=== PATIENT | female | born 1990 | race Asian ===

== ENCOUNTER 2017-08-14 14:40 | Outpatient (CLI) | payer OTHER ==
[~2017-08-14 14:40] MED LIST: BCP
[2017-08-14 15:28] LABS: BASOPHILS # (AUTO) 0.4 K/uL (0.00-0.22); EOSINOPHILS # (AUTO) 0.1 K/uL (0-0.4); HEMATOCRIT 41.6 % (36-48); HEMOGLOBIN 13.9 g/dL (12.0-16.0); LYMPHOCYTES # (AUTO) 1.9 K/uL (2.5-16.5); MEAN CORPUSCULAR HEMOGLOBIN 29 pg (27-31); MEAN CORPUSCULAR HGB CONC 33 g/dL (33-37); MEAN CORPUSCULAR VOLUME 87 fL (80-94); NEUTROPHILS # (AUTO) 8.8 K/uL (1.8-7.7); PLATELET COUNT (AUTO) 317 K/uL (140-450); WHITE BLOOD COUNT (AUTO) 12.2 K/uL (4.8-10.8)
[2017-08-17 17:12] LABS: HEPATITIS B SURFACE ANTIGEN NEGATIVE (NEGATIVE)
== END 2017-08-14 19:06 | disposition home or self-care (01) ==
LOC: MLB 14:40
PROVIDERS: ATTEND Obstetrics & Gynecology
DX: Z34.91 Encounter for supervision of normal pregnancy, unspecified, first trimester (principal); Z11.3 Encounter for screening for infections with a predominantly sexual mode of transmission
CPT/HCPCS: 36415; 84702; 85025; 86592; 86702; 86762; 86900; 86901; 87340

== ENCOUNTER → 2017-10-09 | Outpatient (CLI) | payer OTHER | LOC: MLB 15:08 | PROVIDERS: ATTEND Obstetrics & Gynecology | DX: Z33.1 Pregnant state, incidental (principal) | CPT/HCPCS: 36415; 86886 ==

== ENCOUNTER 2017-11-15 12:08 | Outpatient (CLI) | payer OTHER | END 2017-11-15 20:17 | disposition home or self-care (01) | LOC: MUS 12:08 | DX: Z34.92 Encounter for supervision of normal pregnancy, unspecified, second trimester (principal); Z3A.14 14 weeks gestation of pregnancy | CPT/HCPCS: 76805 ==

== ENCOUNTER 2017-12-03 08:45 | Outpatient (CLI) | payer OTHER ==
[2017-12-03 10:18] LABS: BASOPHILS # (AUTO) 0.2 K/uL (0.00-0.22); BASOPHILS % (AUTO) 2.1 % (0.0-2.0); EOSINOPHILS # (AUTO) 0.2 K/uL (0-0.4); EOSINOPHILS % (AUTO) 1.4 % (0.0-4.0); HEMATOCRIT 36.5 % (36-48); HEMOGLOBIN 12.3 g/dL (12.0-16.0); LYMPHOCYTES # (AUTO) 1.5 K/uL (2.5-16.5); MEAN CORPUSCULAR HEMOGLOBIN 30 pg (27-31); MEAN CORPUSCULAR HGB CONC 34 g/dL (33-37); MEAN CORPUSCULAR VOLUME 89.6 fL (80-94); MONOCYTES # (AUTO) 0.7 K/uL (0.8-1.0); MONOCYTES % (AUTO) 6.4 % (1.7-9.3); NEUTROPHILS # (AUTO) 9.1 K/uL (1.8-7.7); NEUTROPHILS % (AUTO) 77.1 % (42.2-75.2); PLATELET COUNT (AUTO) 270 K/uL (140-450); RED BLOOD CELL COUNT(AUTO) 4.07 MIL/uL (4.20-5.40); RED CELL DISTRIBUTION WIDTH 12.2 % (11.6-13.7); WHITE BLOOD COUNT (AUTO) 11.7 K/uL (4.8-10.8)
[2017-12-03 12:17] LABS: GLUCOSE,FASTING GESTATIONAL 91 mg/dL (70-110)
== END 2017-12-03 21:46 | disposition home or self-care (01) ==
LOC: MLB 08:45
PROVIDERS: ATTEND Obstetrics & Gynecology
DX: Z33.1 Pregnant state, incidental (principal)
CPT/HCPCS: 36415; 82951; 85025

== ENCOUNTER 2018-02-21 12:45 | Outpatient (CLI) | payer OTHER ==
[2018-02-21 13:42] LABS: BASOPHILS % (AUTO) 0.3 % (0.0-2.0); EOSINOPHILS # (AUTO) 0.1 K/uL (0-0.4); EOSINOPHILS % (AUTO) 0.7 % (0.0-4.0); HEMATOCRIT 39.4 % (36-48); HEMOGLOBIN 13.5 g/dL (12.0-16.0); LYMPHOCYTES # (AUTO) 1.4 K/uL (2.5-16.5); LYMPHOCYTES % (AUTO) 15.2 % (20.5-51.1); MEAN CORPUSCULAR HEMOGLOBIN 30 pg (27-31); MEAN CORPUSCULAR HGB CONC 34 g/dL (33-37); MEAN CORPUSCULAR VOLUME 86.9 fL (80-94); MONOCYTES # (AUTO) 0.8 K/uL (0.8-1.0); MONOCYTES % (AUTO) 8.5 % (1.7-9.3); NEUTROPHILS # (AUTO) 7.2 K/uL (1.8-7.7); NEUTROPHILS % (AUTO) 75.3 % (42.2-75.2); PLATELET COUNT (AUTO) 243 K/uL (140-450); RED BLOOD CELL COUNT(AUTO) 4.54 MIL/uL (4.20-5.40); WHITE BLOOD COUNT (AUTO) 9.5 K/uL (4.8-10.8)
== END 2018-02-21 20:11 | disposition home or self-care (01) ==
LOC: MLB 12:45
DX: Z34.80 Encounter for supervision of other normal pregnancy, unspecified trimester (principal)
CPT/HCPCS: 36415; 85025; 86592

== ENCOUNTER 2018-03-11 10:04 | Inpatient (IN) | payer OTHER ==
[~2018-03-11] VITALS: Ht 162.6 cm; Wt 77.1 kg
[2018-03-11] MEDS ORDERED: PREN-546 PO (10:29)
[2018-03-11 11:10] VITALS: BP 142/96
[2018-03-11] MEDS ORDERED: OXYTOCIN 20 UNITS in LACTATED RINGERS 1,000 ML IV SCH (12:24)
[2018-03-11] MEDS ORDERED: METHYLERGONOVINE 0.2 MG/ML AMP IM PRN (12:25)
[2018-03-11] MEDS ORDERED: PROMETHAZINE 25 MG/ML VIAL IVP PRN (12:25)
[2018-03-11] MEDS ORDERED: NALBUPHINE 10 MG/ML AMP IVP PRN (12:25)
[2018-03-11] MEDS ORDERED: OXYTOCIN 10 UNITS/ML VIAL IM PRN (12:25)
[2018-03-11] MEDS ORDERED: MISOPROSTOL 25 MCG TAB ONE ×3 (13:26→22:16)
[2018-03-11 16:08] LABS: BASOPHILS % (AUTO) 0.3 % (0.0-2.0); EOSINOPHILS % (AUTO) 0.4 % (0.0-4.0); HEMATOCRIT 40.4 % (36-48); HEMOGLOBIN 13.4 g/dL (12.0-16.0); LYMPHOCYTES # (AUTO) 1.8 K/uL (2.5-16.5); LYMPHOCYTES % (AUTO) 16.1 % (20.5-51.1); MEAN CORPUSCULAR HEMOGLOBIN 30 pg (27-31); MEAN CORPUSCULAR HGB CONC 33 g/dL (33-37); MEAN CORPUSCULAR VOLUME 89.7 fL (80-94); MONOCYTES # (AUTO) 0.8 K/uL (0.8-1.0); NEUTROPHILS # (AUTO) 8.4 K/uL (1.8-7.7); NEUTROPHILS % (AUTO) 76.2 % (42.2-75.2); PLATELET COUNT (AUTO) 197 K/uL (140-450); RED BLOOD CELL COUNT(AUTO) 4.51 MIL/uL (4.20-5.40); RED CELL DISTRIBUTION WIDTH 13.5 % (11.6-13.7)
[2018-03-11 16:48] LABS: BILIRUBIN,URINE NEGATIVE (NEGATIVE); BLOOD, URINE TRACE-I (NEGATIVE); LEUKOCYTE ESTERASE ,URINE 2+ (NEGATIVE); NITRITE, URINE NEGATIVE (NEGATIVE); UGLUCOSE NEGATIVE (NEGATIVE)
[2018-03-11 16:49] LABS: APPEARANCE,URINE HAZY (CLEAR)
[2018-03-11 16:50] LABS: PROTHROMBIN TIME 9.3 secs (10.8-13.4)
[2018-03-11 17:11] LABS: COLOR,URINE STRAW (YELLOW); RBC,URINE 0-5 (RARE) /HPF (0-5)
[2018-03-11] MEDS: LACTATED RINGERS 1,000 ML IV SCH (19:55)
[2018-03-11 22:12] LABS: ALBUMIN 2.7 g/dL (3.4-5.0); ANION GAP 14.2 (8-16); CARBON DIOXIDE 21.7 mmol/L (21-32); CREATININE 0.8 mg/dL (0.6-1.3); POTASSIUM 3.9 mmol/L (3.5-5.1); TOTAL BILIRUBIN 0.2 mg/dL (0.0-1.0)
[2018-03-11] MEDS: MISOPROSTOL 25 MCG TAB VG PRN (22:22)
[2018-03-12] MEDS ORDERED: PROMETHAZINE 25 MG/ML VIAL ONE (02:41)
[2018-03-12] MEDS ORDERED: NALBUPHINE 10 MG/ML AMP ONE (02:41)
[2018-03-12] MEDS ORDERED: MISOPROSTOL 25 MCG TAB ONE (02:42)
[2018-03-12] MEDS: LACTATED RINGERS 1,000 ML IV SCH ×3 (03:00→12:38)
[2018-03-12] MEDS: MISOPROSTOL 25 MCG TAB VG PRN (03:01)
[2018-03-12] MEDS ORDERED: OXYTOCIN 20 UNITS/LR PREMIX 1,000 ML IV ONE (06:23)
[2018-03-12] MEDS ORDERED: ROPIVACAINE 0.2%/NS PREMIX 250 ML EPI ONE (07:17)
[2018-03-12] MEDS ORDERED: ROPIVACAINE 0.2%/NS PREMIX 250 ML EPI SCH (08:20)
--- NOTE | 2018-03-12 08:41 | NUR ---
PATIENT HAS BEEN SCREENED AND CATEGORIZED LOW NUTRITION RISK. PATIENT WILL BE SEEN WITHIN 7 DAYS OF ADMISSION. 03/18/[address]
[2018-03-12] MEDS ORDERED: OXYTOCIN 10 UNITS/ML VIAL ONE (12:43)
[2018-03-12] MEDS ORDERED: TEMAZEPAM 15 MG CAP PO PRN (17:05)
[2018-03-12] MEDS ORDERED: METHYLERGONOVINE 0.2 MG/ML AMP IM PRN (17:05)
[2018-03-12] MEDS ORDERED: OXYTOCIN 10 UNITS/ML VIAL IM PRN (17:05)
[2018-03-12] MEDS ORDERED: MEASLES, MUMPS, AND RUBELLA 1 VIAL SQVAC PRN (17:05)
[2018-03-12] MEDS ORDERED: HYDROcodone/APAP 5/325 MG 1 TAB TAB PO PRN (17:05)
[2018-03-12] MEDS ORDERED: BENZOCAINE/MENTHOL 20%-0.5% 60 GM CAN TP PRN (17:05)
[2018-03-12] MEDS ORDERED: IBUPROFEN 800 MG TAB ONE (17:09)
[2018-03-12] MEDS: oxyCODONE/APAP 5/325 MG 1 TAB TAB PO PRN (18:10)
[2018-03-12] MEDS ORDERED: DOCUSATE SOD/SENNA 50/8.6 MG 1 TAB PO SCH (21:00)
[2018-03-13] MEDS: oxyCODONE/APAP 5/325 MG 1 TAB TAB PO PRN (01:46)
[2018-03-13] MEDS: IBUPROFEN 800 MG TAB PO PRN ×2 (05:49→11:25)
[2018-03-13 05:58] LABS: HEMATOCRIT 37.8 % (36-48); HEMOGLOBIN 12.6 g/dL (12.0-16.0)
== END 2018-03-13 16:15 | disposition home or self-care (01) | DRG 775 ==
LOC: MLD 10:04 → OBSVTOIN 12:32 → MFCC 03-12 17:46
PROVIDERS: ADMIT Obstetrics & Gynecology; ATTEND Obstetrics & Gynecology
PROC: 10E0XZZ Delivery of Products of Conception, External Approach (ICD-10-PCS; principal; 2018-03-12)
PROC: 3E0R3BZ Introduction of Anesthetic Agent into Spinal Canal, Percutaneous Approach (ICD-10-PCS; 2018-03-12)
PROC: 00HU33Z Insertion of Infusion Device into Spinal Canal, Percutaneous Approach (ICD-10-PCS; 2018-03-12)
PROC: 3E033VJ Introduction of Other Hormone into Peripheral Vein, Percutaneous Approach (ICD-10-PCS; 2018-03-12)
DX: O80 Encounter for full-term uncomplicated delivery (principal); Z37.0 Single live birth; Z3A.39 39 weeks gestation of pregnancy
CPT/HCPCS: 36415; 51702; 59200; 59409; 76819; 80053; 81001; 85018; 85025; 85384; 85610; 85730; 86592; 86886; 86900; 86901; 87086; G0378; J2300; J2550; J2590; J2795; J7120; Q0092

== ENCOUNTER 2018-05-07 10:54 | Outpatient (CLI) | payer OTHER ==
[~2018-05-07 10:54] MED LIST changes: +PREN-546 PO
[2018-05-07 11:18] LABS: BASOPHILS % (AUTO) 0.5 % (0.0-2.0); EOSINOPHILS # (AUTO) 0.1 K/uL (0-0.4); EOSINOPHILS % (AUTO) 1.8 % (0.0-4.0); HEMATOCRIT 45.4 % (36-48); HEMOGLOBIN 15.2 g/dL (12.0-16.0); LYMPHOCYTES # (AUTO) 2.3 K/uL (2.5-16.5); LYMPHOCYTES % (AUTO) 34.5 % (20.5-51.1); MEAN CORPUSCULAR HEMOGLOBIN 30 pg (27-31); MEAN CORPUSCULAR HGB CONC 34 g/dL (33-37); MEAN CORPUSCULAR VOLUME 89.3 fL (80-94); MONOCYTES # (AUTO) 0.3 K/uL (0.8-1.0); NEUTROPHILS # (AUTO) 3.9 K/uL (1.8-7.7); NEUTROPHILS % (AUTO) 58.2 % (42.2-75.2); PLATELET COUNT (AUTO) 293 K/uL (140-450); RED BLOOD CELL COUNT(AUTO) 5.08 MIL/uL (4.20-5.40); RED CELL DISTRIBUTION WIDTH 12.5 % (11.6-13.7); WHITE BLOOD COUNT (AUTO) 6.7 K/uL (4.8-10.8)
[2018-05-07 12:08] LABS: ANION GAP 9.8 (8-16); CARBON DIOXIDE 29.3 mmol/L (21-32); CHOL/HDL RATIO 4.6 (1-4.5); CREATININE 0.6 mg/dL (0.6-1.3); POTASSIUM 4.1 mmol/L (3.5-5.1); TOTAL BILIRUBIN 0.5 mg/dL (0.0-1.0)
== END 2018-05-07 19:36 | disposition home or self-care (01) ==
LOC: MLB 10:54
PROVIDERS: ATTEND Obstetrics & Gynecology
DX: Z39.2 Encounter for routine postpartum follow-up (principal)
CPT/HCPCS: 36415; 80053; 85025